=== PATIENT | female | born 1950 | race Caucasian/White ===

== ENCOUNTER 2016-10-13 05:47 | Outpatient (CLI) | payer BC ==
[~2016-10-13] VITALS: Ht 162.6 cm; Wt 64.9 kg
[~2016-10-13 05:47] MED LIST: ACHYD1T PO; ASP81TEC PO; CALC-697 PO; DCS100C PO; ESTR1TAB14 PO; ESTR1TAB24 PO; IBP800T PO; PRAV10TA23 PO
[2016-10-13] MEDS ORDERED: GLUC100016 PO (11:38)
[2016-10-13] MEDS ORDERED: CA C1TAB77 PO (11:38)
[2016-10-13] MEDS ORDERED: MULT-35 PO (11:38)
== END 2016-10-13 11:43 ==
LOC: PREOP 05:47
PROVIDERS: ATTEND Internal Medicine
DX: Z01.818 Encounter for other preprocedural examination (principal); Z12.11 Encounter for screening for malignant neoplasm of colon

== ENCOUNTER 2016-10-15 06:43 | Day surgery (SDC) | payer BC ==
[~2016-10-15] VITALS: Ht 162.6 cm; Wt 64.9 kg
[~2016-10-15 06:43] MED LIST changes: +CA C1TAB77 PO; +GLUC100016 PO; +MULT-35 PO
[2016-10-15] MEDS ORDERED: 1/2 NS IV SOLUTION 1,000 ML IV ONE (06:59)
[2016-10-15] MEDS ORDERED: 1/2 NS IV SOLUTION 1,000 ML IV STA (07:25)
[2016-10-15 07:28] VITALS: BP 142/97
--- NOTE | 2016-10-15 07:29 | HISTORY AND PHYSICAL ---
DICTATING PHYSICIAN: Dr. Perera DATE OF ADMISSION: 10/15/2016 Mrs. Alvarenga is a 66-year-old white female referred for screening colonoscopy by Dr. Fields. She reports occasional constipation which is nothing new and uses Metamucil just twice a week that typically controls her symptoms. She is deemed to be of average risk as she is not aware of any family history for colon cancer. PAST MEDICAL HISTORY: Noncontributory. She has an occasional reflux he has an [id number] and to reduce her for. She does take 81 mg aspirin for primary prevention with no history of vascular disease and is on estradiol for postmenopausal symptoms. PAST SURGICAL HISTORY: 1. She has C-spine fusion 3 years ago in the past/ 2. GORGE and BSO. 3. As a child had a tonsillectomy and adenoidectomy. 4. When she was young an appendectomy. PHYSICAL EXAMINATION: Reveals a well-appearing normal weight white female in no acute distress. BP 138/80. CHEST: Clear. CV: Reveals regular rate and rhythm without murmur, S3 or S4. ABDOMEN: Soft, supple without masses, organomegaly or tenderness. HEENT: She is Mallampati class II oropharyngeal configuration. Oral cavity is clear. ASSESSMENT: The patient is set-up for screening colonoscopy on 10/15/2016. Prep instructions with the [place] prep kit were given and questions were answered. I thank you for the referral of this pleasant lady. Sincerely, Artemio Perera Job ID: [id number] Dictated Date: 09/15/2016 17:26:00 Tunnel Elastic Operator Zigzag Date: 09/16/2016 09:22:01/[email or web address]
[2016-10-15] MEDS ORDERED: NALOXONE 0.4 MG/ML 1 ML (NARCAN) VIAL IVP PRN (07:30)
[2016-10-15] MEDS ORDERED: FLUMAZENIL (ROMAZICON) 0.1 MG/ML 5 ML VIAL INJ PRN (07:30)
[2016-10-15] MEDS ORDERED: LIDOCAINE JELLY 2% (XYLOCAINE) 5 ML TUBE MM PRN (07:30)
--- NOTE | 2016-10-15 08:03 | Pre-Op Note & Conscious Sedat ---
Pre-Operative Progress Note H&P Reviewed The H&P was reviewed, patient examined and no changes noted. Date H&P Reviewed: Oct 15, 2016 Time H&P Reviewed: 08:03 Conscious Sedation Pre-Proced ASA Class: 1 Airway Mallampati Classification: ([place] appropriate class) I. II. III, IV Lungs Heart ASA score ASA 1: a normal healthy patient ASA 2: a patient with a mild systemic disease (mid diabetes, controlled hypertension, obesity ASA 3: a patient with a severe systemic disease that limits activity (angina , COPD, prior Myocardial infarction) ASA 4: a patient with an incapacitating disease that is a constant threat to life (CHF, renal failure) ASA 5: a moribund patient not expected to survive 24 hrs. (ruptured aneurysm) ASA 6: a declared brain patient whose organs are being harvested. For emergent operations, add the letter E after the classification Grade 2 Sedation Plan: Analgesia, Amnesia, Plan communicated to team members, Discussed options with patient/fam, Discussed risks with patient/fam Note The patient is an appropriate candidate to undergo the planned procedure, sedation, and anesthesia. The patient immediately re-assessed prior to indication. JESSE ONEIL MD Oct 15, 2016 08:03
[2016-10-15] MEDS ORDERED: fentaNYL INJECTION 100 MCG/2 ML AMP ONE ×2 (08:23→08:41)
[2016-10-15] MEDS ORDERED: LIDOCAINE JELLY 2% (XYLOCAINE) 5 ML TUBE ONE (08:23)
[2016-10-15] MEDS ORDERED: MIDAZOLAM 2 MG/2 ML (VERSED) VIAL ONE ×3 (08:23→08:45)
[2016-10-15] MEDS: fentaNYL INJECTION 100 MCG/2 ML AMP IVP PRN ×3 (08:30→08:46)
[2016-10-15] MEDS: MIDAZOLAM 2 MG/2 ML (VERSED) VIAL IVP PRN ×4 (08:31→08:51)
[2016-10-15] MEDS ORDERED: ONDANSETRON 4 MG/2 ML (SDV) Z0FRAN ONE (08:58)
[2016-10-15 09:25] VITALS: BP 140/92
[2016-10-15] MEDS ORDERED: ONDANSETRON 4 MG/2 ML (SDV) Z0FRAN IVP ONE (09:30)
[2016-10-15 09:50] VITALS: BP 151/90
[2016-10-15 10:15] VITALS: BP 151/90
--- NOTE | 2016-10-18 06:49 | PROCEDURE REPORT ---
PROCEDURE PHYSICIAN: JESSE ONEIL DATE OF PROCEDURE: 10/15/2016 COLONOSCOPY SUMMARY: INDICATION FOR THE PROCEDURE: Screening colonoscopy. PROCEDURE: The patient was placed in left lateral decubitus position. Prior to undergoing colonoscopy, digital rectal evaluation was performed. Anal sphincter tone was normal and the perianal reflex was intact. The rectum was not midline but oriented toward the right. There was no induration noted. No other abnormalities were noted to digital inspection of the distal rectal vault or anal canal. The colonoscope was then inserted into the rectum and under visualization, advanced to cecum. The cecum was identified by identification of the ileocecal valve and cecal strap. Photographic documentation was obtained. Careful inspection was made as colonoscope was withdrawn. FINDINGS: There no evidence for internal or external hemorrhoids. The rectum was unremarkable. There was some narrowing and tethering of the distal sigmoid colon compatible with some extrinsic compression likely due to adhesions from this patient's recent hysterectomy. I was able to traverse the area and there was no evidence for neoplasia. Mild diverticular disease was noted confined to the sigmoid colon. No other sigmoid colonic abnormalities were appreciated. The descending colon, splenic flexure, transverse colon, hepatic flexure, ascending colon and cecum were unremarkable. ASSESSMENT: 1. No evidence for neoplasia was identified on today's examination, would advocate consideration for repeat screening colonoscopy in 10 years, as the patient is not aware of any family history for colon cancer. 2. There are some tethering and extrinsic compression without evidence for obstruction involving the distal sigmoid colon presumably due to adhesions from recent hysterectomy. Mild diverticular disease was noted confined to the sigmoid colon. It was an otherwise normal colonoscopy to the cecum. I thank you for the referral of this pleasant lady. Sincerely, Job ID: [id number] Dictated Date: 10/15/2016 10:45:06 Electrical Equipment Tester Date: 10/18/2016 06:45:10 / [email or web address]
== END 2016-10-15 10:15 | disposition home or self-care (01) ==
LOC: SDC 06:43
PROVIDERS: ATTEND Internal Medicine
DX: Z12.11 Encounter for screening for malignant neoplasm of colon (principal)